=== PATIENT | male | born 1970 | race Two or more races ===

== ENCOUNTER 2022-07-10 02:11 | Inpatient (IN) | payer MEDICAID, OTHER ==
[~2022-07-10] VITALS: Ht 172.7 cm; Wt 125.0 kg
[~2022-07-10 02:11] MED LIST: HYDR25TA4; LISI20TA28
[2022-07-10] MEDS ORDERED: cloNIDine HCL 0.1 MG TAB ONE (02:52)
[2022-07-10] MEDS ORDERED: cloNIDine HCL 0.1 MG TAB PO ONE (03:00)
[2022-07-10 03:01] LABS: Basophils # (auto) 0.1 10 ^3/uL (0-0.2); Basophils % (auto) 0.6 % (0.0-2.0); Eosinophils # (auto) 0.2 10 ^3/uL (0-0.8); Eosinophils % (auto) 2.1 % (0.0-7.0); Hematocrit 48.4 % (41.0-53.0); Hemoglobin 16.6 g/dL (13.5-17.5); Lymphocytes # (auto) 2.4 10 ^3/uL (0.4-5.4); Lymphocytes % (auto) 23.7 % (10.0-50.0); Mean Corpuscular Hemoglobin 31.2 pg (28.0-32.0); Mean Corpuscular Hgb Conc. 34.3 g/dL (32.0-36.0); Mean Corpuscular Volume 90.8 fL (80.0-100.0); Monocytes # (auto) 1.1 10 ^3/uL (0-1.3); Monocytes % (auto) 11.4 % (0.0-12.0); Neutrophils # (auto) 6.2 10 ^3/uL (1.6-8.6); Neutrophils % (auto) 62.2 % (37.0-80.0); Nucleated Red Blood Cells % 0.3 %; Red Blood Cells 5.33 10^6/uL (4.5-5.90); Red Cell Distribution Width 14.3 % (11.8-14.3)
[2022-07-10 03:12] LABS: Albumin 3.8 g/dL (3.4-5.0); BUN/Creatinine Ratio 18.8; Calcium 9.3 mg/dL (8.5-10.1); Potassium 3.8 mmol/L (3.5-5.1)
[2022-07-10 03:15] LABS: Bilirubin, Total 0.4 mg/dL (0.2-1.0); Total Protein 8.2 g/dL (6.4-8.2)
[2022-07-10] MEDS ORDERED: ACETAMINOPHEN 325 MG TAB PO PRN (06:00)
[2022-07-10] MEDS ORDERED: cloNIDine HCL 0.1 MG TAB PO PRN (06:00)
[2022-07-10] MEDS ORDERED: ONDANSETRON HCL 4 MG/2 ML VIAL IV PRN (06:00)
[2022-07-10] MEDS ORDERED: NITROGLYCERIN 0.4 MG SL TAB SL PRN (06:00)
[2022-07-10] MEDS ORDERED: TEMAZEPAM 15 MG CAP PO PRN (06:00)
[2022-07-10] MEDS ORDERED: HYDROcodone-ACET 5/325MG TAB PO PRN (06:00)
[2022-07-10] MEDS ORDERED: MORPHINE SULFATE INJ 2 MG/ml SYRG IV PRN (06:00)
[2022-07-10] MEDS ORDERED: DEXTROSE (50%) 50ML SYRG IV PRN (06:00)
[2022-07-10] MEDS: ACCU-CHEK COMFORT CURVE STRIP VI SCH ×4 (06:30→22:16)
[2022-07-10] MEDS: InsuLIN REG 1unit/0.01ml Soln (100units/ml) SC SCH ×4 (06:33→22:17)
[2022-07-10] MEDS ORDERED: HCTZ 25 MG TAB PO SCH (10:00)
[2022-07-10] MEDS ORDERED: LISINOPRIL 20 MG TAB PO SCH (10:00)
[2022-07-10] MEDS ORDERED: ALLOPURINOL 100 MG TAB PO SCH (10:00)
[2022-07-10] MEDS: ENOXAPARIN SOD 40 MG/0.4 ML SYRINGE SC SCH (10:48)
[2022-07-10 12:11] LABS: Urine WBC None Seen /hpf (0 - 3)
[2022-07-10 12:30] LABS: Urine Bacteria NONE SEEN /hpf (None Seen); Urine Blood Negative /uL (Negative)
[2022-07-10] MEDS ORDERED: METOPROLOL TARTRATE 25 MG TAB PO ONE (12:45)
[2022-07-10] MEDS: TAMSULOSIN HYDROCHLORIDE 0.4 MG CAP PO SCH (18:07)
[2022-07-10] MEDS: METOPROLOL TARTRATE 25 MG TAB PO SCH (22:19)
[2022-07-11 05:00] VITALS: BP 133/87
[2022-07-11 05:56] LABS: Basophils # (auto) 0 10 ^3/uL (0-0.2); Basophils % (auto) 0.6 % (0.0-2.0); Eosinophils # (auto) 0.2 10 ^3/uL (0-0.8); Eosinophils % (auto) 2.2 % (0.0-7.0); Hematocrit 44.8 % (41.0-53.0); Hemoglobin 15.5 g/dL (13.5-17.5); Lymphocytes # (auto) 2.3 10 ^3/uL (0.4-5.4); Lymphocytes % (auto) 25.7 % (10.0-50.0); Mean Corpuscular Hemoglobin 31.5 pg (28.0-32.0); Mean Corpuscular Hgb Conc. 34.7 g/dL (32.0-36.0); Monocytes # (auto) 0.9 10 ^3/uL (0-1.3); Monocytes % (auto) 10.2 % (0.0-12.0); Neutrophils # (auto) 5.4 10 ^3/uL (1.6-8.6); Neutrophils % (auto) 61.3 % (37.0-80.0); Nucleated Red Blood Cells % 0.1 %; Red Blood Cells 4.93 10^6/uL (4.5-5.90); Red Cell Distribution Width 13.9 % (11.8-14.3); White Blood Cell 8.9 10^3/uL (4.4-10.8)
[2022-07-11] MEDS: InsuLIN REG 1unit/0.01ml Soln (100units/ml) SC SCH ×4 (06:28→21:57)
[2022-07-11] MEDS: ACCU-CHEK COMFORT CURVE STRIP VI SCH ×4 (06:29→22:03)
[2022-07-11 06:35] LABS: Albumin 3.3 g/dL (3.4-5.0); BUN/Creatinine Ratio 15.2; Calcium 8.9 mg/dL (8.5-10.1); Potassium 3.8 mmol/L (3.5-5.1)
[2022-07-11 06:43] LABS: Bilirubin, Total 0.5 mg/dL (0.2-1.0); Total Protein 7.1 g/dL (6.4-8.2)
[2022-07-11 08:00] VITALS: BP 139/94
[2022-07-11 08:53] LABS: Protein, Urine 9.9 mg/dL (0.0-11.9)
[2022-07-11 09:00] VITALS: BP 139/94
[2022-07-11] MEDS ORDERED: ERGOCALCIFEROL 50,000 UNIT(1.25MG) CAP PO SCH (10:00)
[2022-07-11] MEDS ORDERED: LISINOPRIL 20 MG TAB PO SCH (10:00)
[2022-07-11] MEDS ORDERED: HCTZ 25 MG TAB PO SCH (10:00)
[2022-07-11] MEDS: amLODIPine BESYLATE 5 MG TAB PO SCH (10:02)
[2022-07-11] MEDS: METOPROLOL TARTRATE 25 MG TAB PO SCH ×2 (10:02→22:04)
[2022-07-11] MEDS: ENOXAPARIN SOD 40 MG/0.4 ML SYRINGE SC SCH (10:03)
[2022-07-11 13:00] VITALS: BP 160/115
[2022-07-11 17:00] VITALS: BP 153/86
[2022-07-11] MEDS: TAMSULOSIN HYDROCHLORIDE 0.4 MG CAP PO SCH (17:27)
[2022-07-11 22:00] VITALS: BP 120/82
[2022-07-12 05:00] VITALS: BP 131/83
[2022-07-12] MEDS: InsuLIN REG 1unit/0.01ml Soln (100units/ml) SC SCH ×2 (06:34→10:54)
[2022-07-12] MEDS: ACCU-CHEK COMFORT CURVE STRIP VI SCH ×2 (07:14→10:53)
[2022-07-12 07:20] LABS: Calcium 8.8 mg/dL (8.5-10.1); Potassium 4.1 mmol/L (3.5-5.1)
[2022-07-12 07:26] LABS: BUN/Creatinine Ratio 15.2
[2022-07-12 08:00] VITALS: BP 136/85
[2022-07-12] MEDS: amLODIPine BESYLATE 5 MG TAB PO SCH (08:24)
[2022-07-12] MEDS: METOPROLOL TARTRATE 25 MG TAB PO SCH (08:24)
[2022-07-12] MEDS: ENOXAPARIN SOD 40 MG/0.4 ML SYRINGE SC SCH (08:25)
[2022-07-12 09:00] VITALS: BP 136/85
[2022-07-12] MEDS ORDERED: ERGO1CAP23 PO (12:25)
[2022-07-12] MEDS ORDERED: AML5T PO (12:25)
[2022-07-12] MEDS ORDERED: EMPA1TAB PO (12:25)
[2022-07-12] MEDS ORDERED: TAM04C PO (12:25)
[2022-07-12] MEDS ORDERED: LANC-347 XX (12:25)
[2022-07-12] MEDS ORDERED: MET25T PO (12:25)
[2022-07-12] MEDS ORDERED: BLOO1KIT60 XX (12:25)
[2022-07-12 13:00] VITALS: BP 137/94
[2022-07-12] MEDS ORDERED: ATOR40TA52 PO (13:36)
[2022-07-12 13:59] VITALS: BP 136/85
[2022-07-12] MEDS ORDERED: ATORVASTATIN 20 MG TAB PO SCH (22:00)
== END 2022-07-12 16:00 | disposition home or self-care (01) | DRG 281 ==
LOC: ER 02:11 → TELE 05:56 → TELE-WESTW 23:29
PROVIDERS: ADMIT Nurse Practitioner; ATTEND Internal Medicine
DX: I16.1 Hypertensive emergency (principal); I21.A1 Myocardial infarction type 2; N17.9 Acute kidney failure, unspecified; Z68.41 Body mass index [BMI] 40.0-44.9, adult; M10.9 Gout, unspecified; N18.9 Chronic kidney disease, unspecified; E11.22 Type 2 diabetes mellitus with diabetic chronic kidney disease; E66.9 Obesity, unspecified; I12.9 Hypertensive chronic kidney disease with stage 1 through stage 4 chronic kidney disease, or unspecified chronic kidney disease; Z20.822 Contact with and (suspected) exposure to COVID-19; E78.5 Hyperlipidemia, unspecified; Z79.84 Long term (current) use of oral hypoglycemic drugs
CPT/HCPCS: 36415; 71046; 80048; 80053; 80061; 81001; 82306; 82570; 82962; 83036; 83935; 83970; 84156; 84300; 84484; 85025; 87426; 93005; 93306; 96372; 99291; G0378; J1815

== ENCOUNTER 2024-06-24 19:25 | Emergency (ER) | payer BC ==
[~2024-06-24] VITALS: Ht 172.7 cm; Wt 125.8 kg
[~2024-06-24 19:25] MED LIST changes: +AML5T PO; +AMLO1TAB23 PO; +ATOR40TA52 PO; +EMPA1TAB PO; +ERGO1CAP23 PO; -HYDR25TA4; -LISI20TA28; +MET25T PO; +METO25TA5 PO; +TAMS-35 PO
--- NOTE | 2024-06-24 20:08 | ED.PDOC ---
General HPI Comments This patient is a 53y M who presents to the ED for chief complaint of penile problem. Pt states he has been having pain and itching by his groin area. Pt states his partner was recently seen at [facility] for similar symptoms and states she was dx with fungal infection and give antifungal medications. Pt states he thinks he also has fungal infection and came for further evaluation. Patient can not confirm whether his partner is monogamous with him. Pt states he had originally went to urgent care for his concerns but states he was referred to the ED due to elevated blood pressure with systolic in the 170s. Pt in the ED, states he is having itching and pain in his uncircumcised penis around the glans penis. Pt had vitals checked multiple times and BP is noted to be elevated in the systolic 200's with recent BP measurement of 223/136. Pt does have history of HTN and states he does take his prescribed medications. Pt otherwise denies any other symptoms at this time. Time Seen by MD: 20:05 Reviewed notes: Nurses Notes, Medications, Allergies Allergies: Coded Allergies: NO KNOWN ALLERGIES (Unverified , 12/23/12) Home Meds Active Scripts Tamsulosin Hcl (Flomax) 0.4 Mg Cap, 1 CAP PO HS, #30 CAP 5 Refills Prov:RENAN SIDHU MD 07/08/23 Empagliflozin (Jardiance) 10 Mg Tab, 10 MG PO DAILY, #30 TAB 5 Refills Prov:RENAN SIDHU MD 07/08/23 Amlodipine Besylate (Amlodipine Besylate) 10 Mg Tab, 1 TAB PO DAILY, #30 TAB 5 Refills Prov:RENAN SIDHU MD 07/08/23 Metoprolol Tartrate (Metoprolol Tartrate) 25 Mg Tab, 1 TAB PO BID, #60 TAB 5 Refills Prov:RENAN SIDHU MD 07/08/23 Atorvastatin Calcium (ATORVASTATIN CALCIUM) 40 Mg Tab, 1 TAB PO HS, #30 TAB 5 Refills Prov:RENAN SIDHU MD 07/08/23 Atorvastatin Calcium (ATORVASTATIN CALCIUM) 40 Mg Tab, 1 TAB PO QPM, #30 TAB 3 Refills Prov:NORMA DIAS 07/12/22 Empagliflozin (Jardiance) 10 Mg Tab, 10 MG PO QAM for 30 Days, #30 TAB Prov:SAMRA MOON MD 07/12/22 Tamsulosin Hcl (Flomax) 0.4 Mg Cap, 0.4 MG PO QPM for 30 Days, #30 CAP Prov:SAMRA MOON MD 07/12/22 Metoprolol Tartrate (Lopressor) 25 Mg Tb, 25 MG PO BID for 30 Days, #60 TAB Prov:SAMRA MOON MD 07/12/22 Ergocalciferol (VITAMIN D 38388 UNIT) 50,000 [place], [address] UNIT PO Q7D for 10 Days, #10 CAP Prov:SMARA MOON MD 07/12/22 Amlodipine Besylate (NORVASC TABLET) 5 Mg Tb, 10 MG PO DAILY for 30 Days, #60 TAB Prov:SAMRA MOON MD 07/12/22 Information Source: Patient Mode of Arrival: Ambulatory Brought in by: self Severity: Moderate Inability to void: None Timing: Days Duration: Since onset Prehospital treatment: None Onset: Spontaneous Symptoms: Other (White fluid around glans penis) History of: Other (Sexual partner was positive for vaginal candidal infection) Location: Other (Glans penis on an uncircumcised penis) Penile discharge: White Past Medical History PAST MEDICAL HISTORY: DM, Gout, High Lipids, HTN Surgical History: Denies all surgeries Family History Family History: Reviewed,noncontributory to illness Social History Smoker: Non-Smoker Alcohol: Occasionally Drugs: Denies Drug Use Lives In: Home Constitutional: denies: chills, diaphoresis, fatigue, fever, malaise, sweats, weakness, others EENTM: denies: blurred vision, double vision, ear bleeding, ear discharge, ear drainage, ear pain, ear ringing, eye pain, eye redness, hearing loss, mouth pain, mouth swelling, nasal discharge, nose bleeding, nose congestion, nose pain, photophobia, tearing, throat pain, throat swelling, voice changes, others Respiratory: denies: cough, hemoptysis, orthopnea, SOB at rest, shortness of breath, SOB with excertion, stridor, wheezing, others Cardiovascular: denies: chest pain, dizzy spells, diaphoresis, Dyspnea on exertion, edema, irregular heart beat, left arm pain, lightheadedness, palpitations, PND, syncope, others Gastrointestinal: denies: abdomen distended, abdominal pain, blood streaked bowels, constipated, diarrhea, dysphagia, difficulty swallowing, hematemesis, melena, nausea, poor appetite, poor fluid intake, rectal bleeding, rectal pain, vomiting, others Genitourinary: reports: penile discharge; denies: burning, dysuria, flank pain, frequency, hematuria, incontinence, penile sore, pain, testicle pain, testicle swelling, urgency, others Neurological: denies: dizziness, fainting, headache, left sided numbness, left sided weakness, numbness, paresthesia, pre-existing deficit, right sided numbness, right sided weakness, seizure, speech problems, tingling, tremors, weakness, others Musculoskeletal: denies: back pain, gout, joint pain, joint swelling, muscle pain, muscle stiffness, neck pain, others Integumetry: denies: bruises, change in color, change in hair/nails, dryness, laceration, lesions, lumps, rash, wounds, others Allergic/Immunocompromised: denies: Difficulty Healing, Frequent Infections, Hives, Itching, others Hematologic/Lymphatic: denies: anemia, blood clots, easy bleeding, easy bruising, swollen glands, others Endocrine: denies: excessive hunger, excessive sweating, excessive thirst, excessive urination, flushing, intolerance to cold, intolerance to heat, unexplained weight gain, unexplained weight loss, others Psychiatric: denies: anxiety, bipolar disorder, depression, hopeless, panic disorder, schizophrenia, sleepless, suicidal, others All Other Systems: Reviewed and Negative Physical Exam General Appearance: Mild Distress (Due to anxiety related to his concerns rather than pain per se.), Normal HEENT: Normal ENT Inspection, Pharynx Normal, TMs Normal Neck: Full Range of Motion, Non-Tender, Normal, Normal Inspection Respiratory: Chest Non-Tender, Lungs Clear, No Accessory Muscle Use, No Respiratory Distress, Normal Breath Sounds Cardiovascular: No Edema, No JVD, No Murmur, No Gallop, Normal Peripheral Pulses, Regular Rate/Rhythm Breast Exam: Deferred Gastrointestinal: No Organomegaly, Non Tender, No Pulsatile Mass, Normal Bowel Sounds, Soft Genitalia: Other (Patient reveals mild clumpy white matter noted around his glans penis once his foreskin was retracted. Unable to assess whether it was urethral discharge or fungal in nature.) Pelvic: Deferred Rectal: Deferred Extremities: No calf tenderness, Normal capillary refill, Normal inspection, Normal range of motion, Non-tender, No pedal edema Neurologic: Alert, No Motor Deficits, Normal Affect, Normal Mood, No Sensory Deficits Cerebellar Function: Normal Reflexes: Normal Skin: Dry, Normal Color, Warm Lymphatic: No Adenopathy Was a procedure done? Was a procedure done?: No Differential Diagnosis Kidney stone (Female): N/A Penile/Scrotal: STD, UTI, Other (Candidal infection) Other Differential Diagnosis hypertensive urgency X-Ray, Labs, Meds, VS Vital Signs Date Time Temp Pulse Resp B/P (MAP) Pulse Ox O2 Delivery O2 Flow Rate FiO2 06/24/24 20:24 98.4 103 20 223/136 (165) 97 98.4 06/24/24 20:24 103 20 97 Room Air 06/24/24 20:18 223/136 06/24/24 19:40 98.4 103 20 223/136 (165) 97 Lab Test 06/24/24 19:50 Range/Units Urine Color Light-yellow Yellow Urine Clarity Clear Clear Urine pH 5.5 5.0-9.0 Urine Specific Barton 1.020 1.001-1.035 Urine Protein 1+ H Negative Urine Ketones Negative Negative Urine Blood Negative Negative /uL Urine Nitrite Negative Negative Urine Bilirubin Negative Negative Urine Urobilinogen Normal Negative mg/dL Urine Leukocyte Esterase Negative Negative /uL Urine RBC 1 0 - 3 /hpf Urine Microscopic WBC < 1 0-3 /HPF Urine Squamous Epithelial Cells Few <5 /hpf Urine Bacteria None seen None Seen /hpf Urine Glucose 4+ H Normal mg/dL Chlamydia trachomatis (AMILCAR) Pending Neisseria gonorrhoeae (AMILCAR) Pending Current Medications Medications (Trade) Dose Ordered Sig/[place] Route Start Time Stop Time Status Last Admin Clonidine HCl (Catapres Tablet) 0.2 mg ONCE ONCE PO 06/24/24 20:00 06/24/24 20:01 DC 06/24/24 20:18 Fluconazole (Diflucan Tablet) 200 mg ONCE ONCE PO 06/24/24 20:00 06/24/24 20:01 DC 06/24/24 20:17 Azithromycin (Zithromax Tablet) 1,000 mg ONCE ONCE PO 06/24/24 20:00 06/24/24 20:01 DC 06/24/24 20:17 Ceftriaxone Sodium (Rocephin) 500 mg ONCE ONCE IM 06/24/24 20:00 06/24/24 20:01 DC 06/24/24 20:20 X-Ray, Labs, Meds, VS Comment All studies performed the ED were evaluated by me personally. Urinalysis was unremarkable for any UTI. Patient was treated empirically for chlamydia and gonorrhea as well as given a dose of Diflucan prior to discharge. Advised patient did not engage in sexual contact until he receives test results from this facility. Patient will be given a prescription for a 2nd Diflucan dose to be utilized in three days. Time of 1ST Reevaluation: 23:03 Reevaluation 1ST: Improved Consultation: PCP Patient Education/Counseling: Diagnosis, Treatment Family Education/Counseling: Diagnosis, Treatment, No Family Present Departure 1 Departure Time of Disposition: 23:14 Impression: Primary Impression: Inés infection Additional Impression: Possible exposure to STD Disposition: 01 HOME / SELF CARE / HOMELESS Condition: Stable Additional Instructions: Advised patient utilize his Diflucan in three days. Patient should not engage in sexual activity until he gets confirmation from this facility with respect to his gonorrhea and chlamydia testing. e-Prescriptions Fluconazole (Diflucan) 150 Mg Tab 1 TAB PO ONCE, #1 TAB 1 Refill Patient to take on 06/26/2024 Prov: PAUL TROY 06/24/24 Discharged With: Self, Friend Critical Care Note Critical Care Time?: No Stability Stability form required: No Heart Score Heart Score: Heart Score Response (Comments) Value History N/A 0 EKG N/A 0 Age N/A 0 Risk Factors N/A 0 Troponin N/A 0 Total 0 I personally scribed for PAUL TROY PAC ([email or web address]) on 06/24/24 at 20:08. Electronically submitted by Soto Dixon ([email or web address]). PAUL TROY PAC Jun 24, 2024 20:08
[2024-06-24] MEDS: FLUCONAZOLE 100 MG TAB PO ONE (20:17)
[2024-06-24] MEDS: AZITHROMYCIN 250 MG TAB PO ONE (20:17)
[2024-06-24] MEDS: cloNIDine HCL 0.1 MG TAB PO ONE (20:18)
[2024-06-24] MEDS: cefTRIAXone SOD 500 MG VL IM ONE (20:20)
[2024-06-24 20:26] LABS: Urine Bacteria None Seen /hpf (None Seen)
[2024-06-24 20:30] LABS: Urine Blood Negative /uL (Negative); Urine Clarity Clear (Clear); Urine Color Light-Yellow (Yellow); Urine Protein, UAD 1+ (Negative); Urine Squamous Epithelial Cell FEW /hpf (<5); Urine Urobilinogen Normal (Negative); Urine WBC < 1 /HPF (0-3); Urine pH 5.5 (5.0-9.0)
[2024-06-24] MEDS ORDERED: FLUC150T38 PO (23:16)
[2024-06-25] MEDS: cloNIDine HCL 0.1 MG TAB PO ONE (01:58)
[2024-06-25 03:33] VITALS: BP 149/86; PULSE 96; RESP 20; TEMP 97.6; O2SAT 97
[2024-06-27 06:06] LABS: Chlamydia Trachomatis, NAA Negative (Negative); Neisseria gonorrhoeae, NAA Negative (Negative)
== END 2024-06-25 03:37 | disposition home or self-care (01) ==
LOC: ER 19:25
DX: B37.9 Candidiasis, unspecified (principal); I10 Essential (primary) hypertension; E11.9 Type 2 diabetes mellitus without complications; M10.9 Gout, unspecified; E78.5 Hyperlipidemia, unspecified; Z79.84 Long term (current) use of oral hypoglycemic drugs; Z79.899 Other long term (current) drug therapy
CPT/HCPCS: 81001; 87491; 87591; 96372; 99284; J0696